=== PATIENT | female | born 1970 | race Caucasian/White ===

== ENCOUNTER 2017-11-11 16:05 | Emergency (ER) | END 2017-11-11 19:45 | disposition left against medical advice (07) ==

== ENCOUNTER 2019-02-08 14:13 | Emergency (ER) | payer MEDICAID ==
[~2019-02-08] VITALS: Wt 113.2 kg
[~2019-02-08 14:13] MED LIST: ACET500C5 PO; AMLO5TAB4 PO; AZIT250T PO; BENZ1LOZ52 MM; D-ME118S6 PO; FER325 PO; FOLI-49 PO; MEDR10TA2 PO; MET25 PO
[2019-02-08 14:16] VITALS: BP 132/59; PULSE 88; RESP 20
--- NOTE | 2019-02-09 21:25 | ERD ---
ER Documentation Chief Complaint Chief Complaint sent from clinic to [facility] pmd for hg 9.7 HPI 48-year-old female patient with past medical history of hypertension, rheumatoid arthritis, pulmonary embolism presents to the ED stating that she had a hemoglobin of 9.7 with her airplane technician. Reports that she no longer gets her menstruation due to taking Provera 10 mg. She denies any dizziness, weakness, chest pain, shortness of breath, abdominal pain. Patient is taking Provera, warfarin 5 mg, lisinopril, methotrexate, folic acid, amlodipine. Blood Bank Manager had sent patient to see me in follow-up with her PCP in 2 weeks however patient presented to the ED. ROS All systems reviewed and are negative except as per history of present illness. Medications Home Meds Active Scripts Azithromycin* (Zithromax*) 250 Mg Tablet, 250 MG PO .ZPACK DIRECTED, #6 TAB TAKE 500 MG (2 TABS) THE FIRST DAY THEN 250 MG (1 TAB) DAYS 2-5 Prov:CATHY RAYMUNDO NP 02/22/16 Benzocaine/Menthol* (Cepacol* Sore Throat Lozenges) 1 Each Lozenge, 1 EACH MM q2h PRN for SORE THROAT for 14 Days, LOZENGE Prov:CATHY RAYMUNDO NP 02/22/16 Acetaminophen* (Tylophen*) 500 Mg Capsule, 1000 MG PO Q6H PRN for FEVER for 10 Days, TAB Prov:CATHY RAYMUNDO I. [employer] 02/22/16 Dextromethorphan Hb-Promethazine Hcl (Promethazine DM Syrup) 180 Ml Syrup, 5 ML PO Q6H PRN for COUGH, #4 OZ Prov:CATHY RAYMUNDO I. [employer] 02/22/16 Reported Medications Methotrexate* (Methotrexate*) 2.5 Mg Tab, 20 MG PO MONDAY, TAB 01/03/15 Medroxyprogesterone Acetate* (Provera*) 10 Mg Tablet, 10 MG PO DAILY, TAB 01/03/15 Folic Acid* (Folic Acid*) 1 Mg Tablet, 1 MG PO DAILY, TAB 01/03/15 Ferrous Sulfate* (Ferrous Sulfate*) 325 Mg Tabec, 325 MG PO TID, TAB 01/03/15 Amlodipine Besylate* (Norvasc*) 5 Mg Tablet, 5 MG PO DAILY, TAB 01/03/15 Allergies Allergies: Coded Allergies: No Known Allergies (Verified Allergy, Mild, 01/03/15) PMhx/Soc History of Surgery: Yes (ivc filter) Anesthesia Reaction: No Hx Neurological Disorder: No Hx Respiratory Disorders: Yes (pulmonary embolism) Hx Cardiac Disorders: Yes (htn) Hx Psychiatric Problems: No Hx Miscellaneous Medical Probl: Yes (dysfunctional uterine bleeding) Hx Alcohol Use: No Hx Substance Use: No Hx Tobacco Use: No Smoking Status: Never smoker FmHx Family History: No diabetes, No coronary disease Physical Exam Vitals Vital Signs Date Temp Pulse Resp B/P (MAP) Pulse Ox O2 O2 Flow FiO2 Time Delivery Rate 02/08/19 98.6 88 20 132/59 100 14:16 (83) Physical Exam Const: Wbx-ydd-onmadolsc, well-nourished. In no acute distress. Head: Atraumatic, normocephalic Eyes: Normal Conjunctiva without injection. No purulent discharge. PERRLA. EOMI ENT: Normal external ear. Ear canal without erythema. Tympanic membrane pearly perez without effusion or bulging. Nasal canal clear with normal turbinates. Moist oropharynx without tonsillar exudates. Non-erythematous pharynx. Uvula midline. No drooling. No trismus. Neck: No cervical midline tenderness. Full range of motion. No meningismus. No cervical lymphadenopathy. No JVD. Resp: Clear to auscultation bilaterally. No wheezing, rhonchi, rales, or crackles. No accessory muscle use. No retractions. Cardio: Regular rate and rhythm. No murmurs, rubs or gallops. Abd: Soft, non tender, non distended. Normal bowel sounds. No palpable masses. No rebound tenderness. No guarding. Negative McBurney's Point. Negative Jimenez's Sign. Skin: Normal skin turgor. No petechiae or rashes Back: No midline tenderness. No CVA tenderness. Ext: No cyanosis, or edema. Distal pulses intact bilaterally. Neur: Awake and alert. Normal gait. Normal coordination. Cranial Nerves II- VII intact. Normal finger to nose. Muscle strength 5/5. Sensation intact. Psych: Normal Mood and Affect Results 24 hrs Laboratory Tests Test 02/08/19 17:25 White Blood Count 7.2 10^3/ul Red Blood Count 4.32 10^6/ul Hemoglobin 9.6 g/dl Hematocrit 33.8 % Mean Corpuscular Volume 78.2 fl Mean Corpuscular Hemoglobin 22.2 pg Mean Corpuscular Hemoglobin Concent 28.4 g/dl Red Cell Distribution Width 17.4 % Platelet Count 301 10^3/UL Mean Platelet Volume 9.4 fl Immature Granulocytes % 0.300 % Neutrophils % 63.3 % Lymphocytes % 26.3 % Monocytes % 6.1 % Eosinophils % 3.6 % Basophils % 0.4 % Nucleated Red Blood Cells % 0.0 /100WBC Immature Granulocytes # 0.020 10^3/ul Neutrophils # 4.6 10^3/ul Lymphocytes # 1.9 10^3/ul Monocytes # 0.4 10^3/ul Eosinophils # 0.3 10^3/ul Basophils # 0.0 10^3/ul Nucleated Red Blood Cells # 0.0 10^3/ul Prothrombin Time 27.7 Sec Prothrombin Time Ratio 2.2 INR International Normalized Ratio 2.58 Activated Partial Thromboplast Time 35.8 Sec Sodium Level 140 mmol/L Potassium Level 3.8 mmol/L Chloride Level 103 mmol/L Carbon Dioxide Level 27 mmol/L Anion Gap 10 Blood Urea Nitrogen 13 mg/dl Creatinine 0.45 mg/dl Est Glomerular Filtrat Rate mL/min > 60 mL/min Glucose Level 178 mg/dl Calcium Level 9.2 mg/dl Procedures/MDM 48-year-old female patient with past medical history of hypertension, rheumatoid arthritis, pulmonary embolism presents to the ED with a hemoglobin of 9.7 on January 19, 2019 and is here for repeat blood work. Patient is afebrile and nontoxic-appearing. Patient was further worked up with CBC, CMP, PT, PTT. CBC: No leukocytosis. No e/o of systemic infection. Stable hemoglobin of 9.6 noted. CMP: No e/o severe acidosis, alkalosis, renal failure, diabetic ketoacidosis, liver disease INR: Patient is taking warfarin -appropriate dosage of 5 mg as patient's INR is 2.58 within the 2-3 normal range. Low suspicion for acute myocardial infarction, pneumothorax, pericarditis, myocarditis, endocarditis, pneumonia, cardiac tamponade, pulmonary embolism, pleural effusion, AAA, aortic dissection, Boerhaave's syndrome, cardiac dysrhythmias,meningitis, intracranial bleed, seizure, stroke, TIA or other emergent conditions. Low suspicion for ectopic , ovarian torsion, gastritis, GERD, peptic ulcer disease, cholecystitis, choledocholithiasis, cholangitis, pancreatitis, appendicitis, bowel obstruction, ileus, volvulus, nephrolithiasis, pyelonephritis, hepatitis, perforated viscus, diverticulitis, strangulated/incarcerated hernia, DKA, acute abdomen, mesenteric ischemia or other emergent conditions. Discussed with Dr. Jorge who agreed with the management and discharge plan. Diagnosis: Encounter for laboratory test Follow up with primary care physician in 1-2 days for further management of patient's anemia. Instructed patient to return to the ED sooner for any worsening symptoms. Patient's questions were answered. Patient understood and agreed with discharge plan. Patient discharged stable. Departure Diagnosis: Primary Impression: Encounter for laboratory test Condition: Stable Patient Instructions: Anemia, Type Not Specified (Adult) Referrals: [facility] YOU HAVE RECEIVED A MEDICAL SCREENING EXAM AND THE RESULTS INDICATE THAT YOU DO NOT HAVE A CONDITION THAT REQUIRES URGENT TREATMENT IN THE EMERGENCY DEPARTMENT. FURTHER EVALUATION AND TREATMENT OF YOUR CONDITION CAN WAIT UNTIL YOU ARE SEEN IN YOUR DOCTORS OFFICE WITHIN THE NEXT 1-2 DAYS. IT IS YOUR RESPONSIBILITY TO MAKE AN APPOINTMENT FOR FOLOW-UP CARE. IF YOU HAVE A PRIMARY DOCTOR --you should call your primary doctor and schedule an appointment IF YOU DO NOT HAVE A PRIMARY DOCTOR YOU CAN CALL OUR PHYSICIAN REFERRAL HOTLINE AT IF YOU CAN NOT AFFORD TO SEE A PHYSICIAN YOU CAN CHOSE FROM THE FOLLOWING [facility] [address] [facility]. [facility] [address] [facility] [facility] [address] [facility]. [facility] [address] [facility]. [facility] [address] [facility]. [facility]. [address] [facility]. [facility] YOU HAVE RECEIVED A MEDICAL SCREENING EXAM AND THE RESULTS INDICATE THAT YOU DO NOT HAVE A CONDITION THAT REQUIRES URGENT TREATMENT IN THE EMERGENCY DEPARTMENT. FURTHER EVALUATION AND TREATMENT OF YOUR CONDITION CAN WAIT UNTIL YOU ARE SEEN IN YOUR DOCTORS OFFICE WITHIN THE NEXT 1-2 DAYS. IT IS YOUR RESPONSIBILITY TO MAKE AN APPOINTMENT FOR FOLOW-UP CARE. IF YOU HAVE A PRIMARY DOCTOR --you should call your primary doctor and schedule and appointment IF YOU DO NOT HAVE A PRIMARY DOCTOR YOU CAN CALL OUR PHYSICIAN REFERRAL HOTLINE AT . IF YOU CAN NOT AFFORD TO SEE A PHYSICIAN YOU CAN CHOSE FROM THE FOLLOWING [facility]: [facility] [address] [place] [address] [facility] [address] [place], [place] [id number] [place] [address] [address] [place] [address] [facility] URGENT CARE/SPECIALTIES Additional Instructions: Llame al doctor MAANA y vee corinne NAEEM PARA DENTRO DE 2-3 COOK para el manejo de randall anemia.Dgale a la secretaria que nosotros le instruimos hacer esta naeem.Avise o llame si randall condicin se empeora antes de la naeem. Regresa aqui si peor o no mejor. LOLIS SAMUEL PA-C Feb 09, 2019 21:25
== END 2019-02-08 18:34 | disposition home or self-care (01) ==
LOC: FTE 14:13
DX: Z00.00 Encounter for general adult medical examination without abnormal findings (principal); I10 Essential (primary) hypertension; Z79.01 Long term (current) use of anticoagulants
CPT/HCPCS: 80048; 85025; 85610; 85730; 99283